=== PATIENT | male | born 1985 ===

== ENCOUNTER 2023-06-06 05:56 | Day surgery (SDC) | payer OTHER ==
[2023-06-04 11:25] VITALS: BMI 28.5
[2023-06-06] MEDS ORDERED: Midazolam HCl 2 mg/2 ml Vial ONE (07:33)
[2023-06-06] MEDS ORDERED: PROPOFOL 40 ML ONE (08:13)
== END 2023-06-06 09:15 | disposition home or self-care (01) ==
LOC: CSHSDC 05:56
PROVIDERS: ATTEND Internal Medicine Gastroenterology
PROC: 0DJD8ZZ Inspection of Lower Intestinal Tract, Via Natural or Artificial Opening Endoscopic (ICD-10-PCS; principal; 2023-06-06)
DX: K62.5 Hemorrhage of anus and rectum (principal); F90.9 Attention-deficit hyperactivity disorder, unspecified type; F41.9 Anxiety disorder, unspecified; F17.210 Nicotine dependence, cigarettes, uncomplicated; Z79.899 Other long term (current) drug therapy
CPT/HCPCS: J2250; J2704